=== PATIENT | female | born 1955 | race African-American/Black ===

== ENCOUNTER 2021-03-21 22:24 | Emergency (ER) | payer OTHER ==
[~2021-03-21] VITALS: Ht 157.5 cm; Wt 60.0 kg
[2021-03-21 22:30] VITALS: BP 130/68
[2021-03-21] MEDS ORDERED: CEPH500C2 MT (23:05)
[2021-03-21] MEDS ORDERED: NEOM28OI36 TOP (23:05)
[2021-03-21] MEDS ORDERED: IBUPROFEN 600MG TABLET PO ONE (23:15)
== END 2021-03-21 23:20 | disposition home or self-care (01) ==
LOC: ER 22:24
DX: S60.410A Abrasion of right index finger, initial encounter (principal); W26.8XXA Contact with other sharp object(s), not elsewhere classified, initial encounter; Y93.89 Activity, other specified; Y92.89 Other specified places as the place of occurrence of the external cause; Y99.0 Civilian activity done for income or pay
CPT/HCPCS: 99281

== ENCOUNTER 2021-04-25 11:58 | Emergency (ER) | payer OTHER ==
[~2021-04-25] VITALS: Ht 152.4 cm; Wt 59.0 kg
[~2021-04-25 11:58] MED LIST: CEPH500C2 MT; NEOM28OI36 TOP
[2021-04-25] MEDS ORDERED: HYDR-3735 MT (14:16)
[2021-04-25] MEDS ORDERED: IVER3TAB MT (14:16)
[2021-04-25 14:29] VITALS: BP 136/80
== END 2021-04-25 14:30 | disposition home or self-care (01) ==
LOC: ER 11:58
DX: L29.9 Pruritus, unspecified (principal); R20.9 Unspecified disturbances of skin sensation
CPT/HCPCS: 99283

== ENCOUNTER 2021-06-25 21:18 | Emergency (ER) | payer OTHER ==
[~2021-06-25] VITALS: Ht 165.1 cm; Wt 59.9 kg
[~2021-06-25 21:18] MED LIST changes: +HYDR-3735 MT; +IVER3TAB MT
[2021-06-25 21:22] VITALS: BP 118/73
[2021-06-25] MEDS ORDERED: ACETAMINOPHEN 325MG TABLET PO ONE (21:45)
[2021-06-25] MEDS ORDERED: TOPUD PO (23:50)
== END 2021-06-26 00:10 | disposition home or self-care (01) ==
LOC: ER 21:18
DX: M79.18 Myalgia, other site (principal); M54.2 Cervicalgia; Z98.890 Other specified postprocedural states; Z79.899 Other long term (current) drug therapy
CPT/HCPCS: 99284